=== PATIENT | female | born 1950 | race Caucasian/White ===

== ENCOUNTER 2024-02-14 16:34 | Outpatient (CLI) | payer MEDICARE, MEDICAID | END 2024-02-14 23:59 | disposition home or self-care (01) | LOC: RAD 16:34 | PROVIDERS: ATTEND Nurse Practitioner Family | DX: M47.812 Spondylosis without myelopathy or radiculopathy, cervical region (principal); M19.012 Primary osteoarthritis, left shoulder; M54.2 Cervicalgia; M89.8X8 Other specified disorders of bone, other site; M85.88 Other specified disorders of bone density and structure, other site | CPT/HCPCS: 71046; 72040; 72070; 72100; 73000 ==